=== PATIENT | female | born 1950 | race Caucasian/White ===

== ENCOUNTER 2021-06-11 18:02 | Emergency (ER) | payer MEDICARE, BC ==
[2021-06-11] MEDS ORDERED: Ketorolac 30 MG/ML SDV IM ONE (19:17)
--- NOTE | 2021-06-11 19:23 | EDM.PDOC ---
ED HPI GENERAL MEDICAL PROBLEM - General Chief Complaint: Lower Extremity Injury/Pain Stated Complaint: LT KNEE INJURY Time Seen by Provider: 06/11/21 19:06 Source of Information: Reports: Patient History Limitations: Reports: No Limitations - History of Present Illness INITIAL COMMENTS - FREE TEXT/NARRATIVE: Is a 71-year-old female presenting to the ED for evaluation of left knee pain. The patient apparently slipped in her garage falling on her left knee while at their home in [place], [place]. She did the 3-hour car ride up from that injury to [place] to their cabin but upon arriving in [place] she could barely walk on the left leg because of the severe knee pain that had developed. She has pain with flexion and extension of the knee. She has pain above the patella and in the retrogenu space. There is minimal swelling of the knee, although she has an abrasion over the patella. She denies any problems with her knees. No other injuries occurred. No distal numbness or tingling of the left leg. Left Knee Pain Score (Numeric/FACES): 9 - Related Data Allergies Allergy/AdvReac Type Severity Reaction Status Date / Time No Known Allergies Allergy Verified 06/11/21 18:32 Home Meds: Home Meds ARIPiprazole [Abilify] 1 mg PO DAILY 06/11/21 [History] Escitalopram Oxalate [Lexapro] 20 mg PO DAILY 06/11/21 [History] Gabapentin [Neurontin] 600 mg PO DAILY 06/11/21 [History] lamoTRIgine [Lamictal] 200 mg PO DAILY 06/11/21 [History] Past Medical History HEENT History: Reports: Impaired Vision Psychiatric History: Reports: Anxiety, Depression - Past Surgical History GI Surgical History: Reports: Other (See Below) Other GI Surgeries/Procedures: spleenectomy Musculoskeletal Surgical History: Reports: Carpal Tunnel, Other (See Below) Other Musculoskeletal Surgeries/Procedures:: trigger finger Social & Family History - Tobacco Use Tobacco Use Status *Q: Never Tobacco User - Caffeine Use Caffeine Use: Reports: None - Recreational Drug Use Recreational Drug Use: No Review of Systems - Review of Systems Review Of Systems: See Below Constitutional: Reports: No Symptoms Musculoskeletal: Reports: Joint Pain (Left knee pain), Joint Swelling (Left knee swelling), Muscle Stiffness (Lower left thigh) Skin: Reports: Wound (Abrasion over the left patella) Neurological: Reports: No Symptoms ED EXAM, GENERAL - Physical Exam Exam: See Below Exam Limited By: No Limitations General Appearance: Alert, Mild Distress Peripheral Pulses: 2+: Posterior Tibial (L), Dorsalis Pedis (L) Extremities: Normal Capillary Refill, Joint Swelling (Mild swelling in front and behind the knee on the left.), Limited Range of Motion (Limited range of motion of the left knee due to pain. This is with flexion and extension. The patient can hold the knee in any position but movement is what exacerbates the pain.) Neurological: Alert, Oriented, Normal Cognition, No Motor/Sensory Deficits Psychiatric: Normal Affect, Normal Mood Skin Exam: Warm, Dry, Wound/Incision (3 x 2 cm abrasion on the left knee over the patella) Course - Vital Signs Last Recorded V/S: Last Vital Signs Temp 36.5 C 06/11/21 18:34 Pulse 80 06/11/21 18:34 Resp 16 06/11/21 18:34 BP 137/62 06/11/21 18:34 Pulse Ox 99 06/11/21 18:34 - Orders/Labs/Meds Orders: Active Orders 24 hr Category Date Time Status Knee 3V Lt [CR] Stat Exams 06/11/21 18:34 Taken Meds: Medications Discontinued Medications Generic Name Dose Route Start Last Admin Trade Name Miller PRN Reason Stop Dose Admin Ketorolac Tromethamine 15 mg 06/11/21 19:17 06/11/21 19:27 Ketorolac 30 Mg/Ml Sdv IM 06/11/21 19:18 15 mg ONETIME ONE Administration - Radiology Interpretation Free Text/Narrative:: I reviewed the three-view x-ray of the left knee. There is no evidence for any osseous abnormalities. There is a mild amount of fluid in the pes anserinus bursa. - Re-Assessments/Exams Free Text/Narrative Re-Assessment/Exam: 06/11/21 19:21 on examination of the knee, there is significant tenderness of the distal femur above the patella and in the retrogenu space with mild effusion. The ligaments all appear to be intact. There is muscular pain with movement of the knee. This is acting more like a knee sprain or contusion then a ligamentous or meniscus injury. There is no evidence on x-ray of any osseous abnormalities including the patella. The patient was given ketorolac 15 mg IM for pain. If this is beneficial we will put her on ketorolac 10 mg 4 times daily as needed for pain for 5 days for pain control. We will likely put her in a knee immobilizer and on crutches for the next 7 days. She can follow-up with her primary care provider when she returns to [place] if not improving. Departure - Departure Time of Disposition: 19:42 Disposition: Home, Self-Care 01 Clinical Impression: Contusion of left knee, initial encounter Fall from standing Qualifiers: Encounter type: initial encounter Qualified Code(s): W19.XXXA - Unspecified fall, initial encounter - Discharge Information Instructions: Crutch Use, Adult, [id number], Knee Sprain, Adult, Easy-to- Read, How to Use a Knee Immobilizer, [id number] Referrals: PCP,None [Primary Care Provider] - Forms: ED Department Discharge Care Plan Goals: Your work-up today suggest that you have a left knee strain and contusion causing pain and swelling of the knee joint and distal muscles of your quadriceps. We will put you in a knee immobilizer and on fairly potent nonsteroidal anti-inflammatories called ketorolac. Please take the ketorolac with food as it can be hard on the stomach. I would anticipate that this will get better over the next 2 to 3 days but if not improving by day 4 I would like you to see a provider in follow-up for reevaluation. Sepsis Event Note (ED) - Evaluation Sepsis Screening Result: No Definite Risk - Focused Exam Vital Signs: Vital Signs Temp Pulse Resp BP Pulse Ox 06/11/21 18:34 36.5 C 80 16 137/62 99 06/11/21 18:19 36.5 C 80 16 137/62 99 - Problem List & Annotations (1) Contusion of left knee, initial encounter SNOMED Code(s): 25806509 Code(s): S80.02XA - CONTUSION OF LEFT KNEE, INITIAL ENCOUNTER Status: Acute Priority: Medium Current Visit: Yes (2) Fall from standing SNOMED Code(s): 2854882 Code(s): W19.XXXA - UNSPECIFIED FALL, INITIAL ENCOUNTER Status: Acute Priority: Medium Current Visit: Yes Qualifiers: Encounter type: initial encounter Qualified Code(s): W19.XXXA - Unspecified fall, initial encounter - Problem List Review Problem List Initiated/Reviewed/Updated: Yes - My Orders Last 24 Hours: My Active Orders 06/11/21 18:34 Knee 3V Lt [CR] Stat - Assessment/Plan Last 24 Hours: My Active Orders 06/11/21 18:34 Knee 3V Lt [CR] Stat
--- NOTE | 2021-06-12 09:02 | CR ---
Knee 3V Lt CLINICAL HISTORY: Fall FINDINGS: No acute fracture or dislocation is noted. There are no osseous lesions. There is fullness in the suprapatellar bursa and/or quadriceps muscle tendon junction. Impression: Suprapatellar fullness may represent joint effusion or soft tissue swelling in the quadriceps No fracture
== END 2021-06-11 19:58 | disposition home or self-care (01) ==
LOC: JP.ED 18:02
DX: S80.02XA Contusion of left knee, initial encounter (principal); W01.0XXA Fall on same level from slipping, tripping and stumbling without subsequent striking against object, initial encounter; Y92.009 Unspecified place in unspecified non-institutional (private) residence as the place of occurrence of the external cause
CPT/HCPCS: 73562; 96372; 99283; J1885